=== PATIENT | male | born 1950 | race Caucasian/White ===

== ENCOUNTER 2019-11-22 10:45 | Emergency (ER) | payer MEDICARE ==
[2019-11-22] MEDS ORDERED: Lorazepam 1 MG TAB ONE (11:16)
[2019-11-22] MEDS ORDERED: Lidocaine 1% 20 ML MDV ONE (11:17)
[2019-11-22] MEDS ORDERED: Clindamycin 150 MG CAP ONE (11:17)
[2019-11-22] MEDS ORDERED: Sterile Water Irrigation 250 ML BOT ONE (11:23)
[2019-11-22] MEDS ORDERED: Octreotide Acetate 100 MCG/ML VIAL ONE (11:23)
[2019-11-22] MEDS ORDERED: Ibuprofen 800 MG TAB ONE (11:28)
== END 2019-11-22 12:29 | disposition home or self-care (01) ==
LOC: MADERS 10:45
DX: N49.2 Inflammatory disorders of scrotum (principal); L73.9 Follicular disorder, unspecified; I25.2 Old myocardial infarction; E78.5 Hyperlipidemia, unspecified; I10 Essential (primary) hypertension; J45.909 Unspecified asthma, uncomplicated; Z86.73 Personal history of transient ischemic attack (TIA), and cerebral infarction without residual deficits
CPT/HCPCS: 55100; J2001; J2354

== ENCOUNTER 2022-06-28 16:45 | Outpatient (CLI) | payer MEDICARE | END 2022-06-28 16:46 | disposition home or self-care (01) | LOC: MADRAD 16:45 | PROVIDERS: ATTEND Registered Nurse | DX: R07.81 Pleurodynia (principal) | CPT/HCPCS: 71046 ==

== ENCOUNTER 2025-01-23 10:23 | Emergency (ER) | payer OTHER ==
[2025-01-23 11:04] LABS: Hematocrit 44.0 % (42.0-52.0); Hemoglobin 13.3 g/dL (14.0-18.0); MDiff Complete? YES; Manual Diff?? YES; Mean Corpuscular Hemoglobin 28.3 pg (27.0-31.0); Mean Corpuscular Volume 93.7 fl (78.0-98.0); Platelet Count 329 10x3/uL (130-400); Red Blood Cell (RBC) Count 4.69 mill/uL (4.70-6.10); White Blood Cell (WBC) Count 20.9 10x3/uL (4.8-10.8)
[2025-01-23 11:05] LABS: ALT (SGPT) 27 U/L (Less than 45); AST (SGOT) 37 U/L (11-34); Albumin 3.6 g/dL (3.1-4.5); Alkaline Phosphatase 122 U/L (40-110); Anion Gap 18 mmol/L (10-20); BUN (Urea Nitrogen) 14 mg/dL (8.4-25.7); Bilirubin, Total 0.3 mg/dL (0.3-1.2); CK (CPK) 142 U/L (30-200); Calc. Creatinine Clearance 0 mL/min (70-130); Calcium 7.5 mg/dL (7.8-10.44); Carbon Dioxide 31 mmol/L (23-31); Chloride 99 mmol/L (98-107); Globulin 3.6 g/dL (2.4-3.5); Glucose 394 mg/dL (83-110); Potassium 4.2 mmol/L (3.5-5.1); Sodium 144 mmol/L (136-145)
[2025-01-23 11:06] LABS: Platelet Adequacy Comment Appears Adequate
[2025-01-23 11:07] LABS: Acetaminophen Less than 10 mcg/mL (Less than 10); Lipase 24 U/L (8-78); Salicylate Less than 8.0 mg/dL (Less than 8.0); Troponin I 0.014 ng/mL (< 0.028)
[2025-01-23 11:16] LABS: INR-International Normal Ratio 1.0; Magnesium Less than 0.6 mg/dL (1.6-2.6); Prothrombin Time 12.8 sec (12.0-14.7)
[2025-01-23 11:18] LABS: D-Dimer Test 1.34 mcg/mL (0.27-0.43)
[2025-01-23] MEDS ORDERED: Cefepime 2 GM VIAL ONE (11:29)
[2025-01-23] MEDS ORDERED: Azithromycin 500 MG VIAL ONE (11:29)
[2025-01-23] MEDS ORDERED: Ketamine 50 MG/ML (10ML VIAL) ONE (11:37)
[2025-01-23] MEDS ORDERED: Rocuronium Bromide 10 MG/ML (10ML VIAL) ONE ×2 (12:04→17:42)
[2025-01-23] MEDS ORDERED: Magnesium 2 GM/50 ML BAG (IN WATER) ONE (12:19)
[2025-01-23] MEDS ORDERED: Etomidate 40 MG (20 mL) VIAL ONE (17:42)
== END 2025-01-23 13:04 | disposition short-term general hospital (02) ==
LOC: MADERS 10:23
DX: A41.9 Sepsis, unspecified organism (principal); J96.00 Acute respiratory failure, unspecified whether with hypoxia or hypercapnia; J44.1 Chronic obstructive pulmonary disease with (acute) exacerbation; J18.9 Pneumonia, unspecified organism; E83.42 Hypomagnesemia; R60.9 Edema, unspecified; I25.2 Old myocardial infarction; I10 Essential (primary) hypertension; Z95.5 Presence of coronary angioplasty implant and graft; Z86.73 Personal history of transient ischemic attack (TIA), and cerebral infarction without residual deficits
CPT/HCPCS: 31500; 70450; 71045; 80053; 80307; 82550; 83605; 83690; 83735; 83880; 84484; 85025; 85379; 85610; 87040; 87428; 93005; 96365; 96375; J0456; J0692; J2060; J2919; J3010; J3475; J7030; J7050